=== PATIENT | male | born 1940 | race Caucasian/White ===

== ENCOUNTER 2024-06-13 13:25 | Emergency (ER) | payer OTHER ==
[~2024-06-13] VITALS: Ht 182.9 cm; Wt 72.1 kg
[2024-06-13] MEDS ORDERED: TDAP DIPH,PERTUSS,TET VAC/PF 0.5 ML DISP.SYRIN IM ONE (13:44)
[2024-06-13] MEDS ORDERED: NEOMY/BACITRA/POLYMYXIN B OINT UD PACKET TP ONE (13:47)
[2024-06-13] MEDS: TDAP DIPH,PERTUSS,TET VAC/PF 0.5 ML DISP.SYRIN IM ONE (13:55)
[2024-06-13] MEDS: NEOMY/BACITRA/POLYMYXIN B OINT UD PACKET TP ONE (14:33)
[2024-06-13 16:19] VITALS: BP 105/66; O2SAT 97
== END 2024-06-13 16:50 | disposition home or self-care (01) ==
LOC: ER 13:25
DX: S01.81XA Laceration without foreign body of other part of head, initial encounter (principal); S61.412A Laceration without foreign body of left hand, initial encounter; I50.9 Heart failure, unspecified; R51.9 Headache, unspecified; Z88.7 Allergy status to serum and vaccine; W01.0XXA Fall on same level from slipping, tripping and stumbling without subsequent striking against object, initial encounter; Y93.89 Activity, other specified; Y92.89 Other specified places as the place of occurrence of the external cause; Y99.8 Other external cause status
CPT/HCPCS: 70450; 90715; A4606; A4663